=== PATIENT | male | born 1965 | race Caucasian/White ===

== ENCOUNTER 2020-07-16 12:39 | Emergency (ER) | payer OTHER ==
[~2020-07-16] VITALS: Ht 182.9 cm; Wt 75.8 kg
[2020-07-16] MEDS ORDERED: LIPITOR 20 MG T20 M1 PO (12:48)
[2020-07-16] MEDS ORDERED: ASA81BEC PO (12:48)
[2020-07-16] MEDS ORDERED: VITAMIN D21250 MC1 PO (12:48)
[2020-07-16 13:17] LABS: ABSOLUTE EOSINOPHILS 0.1 thou/uL (0.0-0.7); ABSOLUTE MONOCYTES 0.4 thou/uL (0.0-1.2); ABSOLUTE NEUTROPHILS 3.6 thou/uL (1.6-8.1); BASOPHILS 0.5 %; EOSINOPHILS 1.4 %; HEMATOCRIT 45.8 % (42.0-52.0); HEMOGLOBIN 16.2 gm/dL (14.0-18.0); LYMPHOCYTES 20.5 %; MCH 30.7 pg (26.0-34.0); MCHC 35.3 g/dL (28.0-37.0); MCV 87.2 fL (80.0-100.0); MONOCYTES 7.2 %; MPV 7.9 fl. (7.2-11.1); NUCLEATED RBCS 0 /100WBC; PLATELET COUNT* 176 thou/uL (150-400); POLYS 70.4 %; RBC 5.25 mil/uL (4.50-6.00); RDW-CV 13.6 % (10.5-14.5); WBC 5.1 thou/uL (4.0-11.0)
[2020-07-16 13:22] LABS: CALCIUM 8.2 mg/dL (8.5-10.1); CREATININE 1.2 mg/dL (0.6-1.3); POTASSIUM 3.9 mmol/L (3.5-5.1)
[2020-07-16 13:25] LABS: ALBUMIN 3.9 g/dL (3.4-5.0); APTT 27.3 Seconds (25.0-31.3); PROTIME 10.5 Seconds (9.20-11.50); TOTAL BILIRUBIN 0.6 mg/dL (<0.1-1.0); TOTAL PROTEIN 7.2 g/dL (6.4-8.2)
[2020-07-16 16:09] VITALS: BP 120/76
--- NOTE | 2020-07-17 09:32 | EKG ---
[place] [address] ELECTROCARDIOGRAM REPORT Name: MITZI HUNTLEY Room: [facility]#: [id number] Admission: 07/16/20 Attend Phys: Discharge: 07/16/20 Date of : 67 Date of Service: 07/16/20 1252 Report #: [id number] THIS REPORT FOR: //name// [facility] ED Test Date: 2020-07-16 Test Time: 12:52:34 Pat Name: MITZI HUNTLEY Department: Room: Gender: [employer] Layer: : 1965 Requested By: Flaquita Mendez Order Number: [id number] MD: Mario Palacios Measurements Intervals [place] Rate: 76 P: 82 [place]: 183 QRS: 61 QRSD: 99 T: 33 QT: 402 QTc: 453 Interpretive Statements Sinus rhythm Baseline wander in lead(s) II,III,aVL,aVF No previous ECG available for comparison Electronically Signed On 07-17-2020 9:32:20 CDT by Mario Palacios [email or web address] <ELECTRONICALLY SIGNED> By: Mario Palacios MD, LOCATED WITHIN [facility] 07/17/20 0932 1252 1252 Mario Palacios MD, LOCATED [facility]IN [facility] /EPI
== END 2020-07-16 16:09 | disposition home or self-care (01) ==
LOC: M.ERS 12:39
PROVIDERS: Personal Emergency Response Attendant
DX: R07.89 Other chest pain (principal); E78.00 Pure hypercholesterolemia, unspecified

== ENCOUNTER 2020-07-26 20:41 | Emergency (ER) | payer OTHER ==
[~2020-07-26] VITALS: Ht 177.8 cm; Wt 75.8 kg
[~2020-07-26 20:41] MED LIST: ASA81BEC PO; LIPITOR 20 MG T20 M1 PO; VITAMIN D21250 MC1 PO
[2020-07-26] MEDS ORDERED: VIAGRA (20:47)
[2020-07-26 20:55] LABS: ABSOLUTE EOSINOPHILS 0.1 thou/uL (0.0-0.7); ABSOLUTE LYMPHOCYTES 1.4 thou/uL (0.8-5.3); ABSOLUTE MONOCYTES 0.5 thou/uL (0.0-1.2); ABSOLUTE NEUTROPHILS 3.8 thou/uL (1.6-8.1); BASOPHILS 0.6 %; EOSINOPHILS 1.9 %; HEMATOCRIT 41.9 % (42.0-52.0); HEMOGLOBIN 14.9 gm/dL (14.0-18.0); MCH 30.8 pg (26.0-34.0); MCHC 35.5 g/dL (28.0-37.0); MCV 86.8 fL (80.0-100.0); MONOCYTES 8.3 %; MPV 7.7 fl. (7.2-11.1); NUCLEATED RBCS 0 /100WBC; PLATELET COUNT* 162 thou/uL (150-400); POLYS 65.2 %; RBC 4.83 mil/uL (4.50-6.00); RDW-CV 13.3 % (10.5-14.5); WBC 5.8 thou/uL (4.0-11.0)
[2020-07-26 21:05] LABS: CALCIUM 8.1 mg/dL (8.5-10.1); CREATININE 1.3 mg/dL (0.6-1.3); POTASSIUM 3.6 mmol/L (3.5-5.1)
[2020-07-26 21:08] LABS: PROTIME 10.4 Seconds (9.20-11.50)
[2020-07-26 21:16] LABS: ALBUMIN 3.7 g/dL (3.4-5.0); MAGNESIUM 2.2 mg/dL (1.8-2.4); TOTAL BILIRUBIN 0.5 mg/dL (<0.1-1.0); TOTAL PROTEIN 6.7 g/dL (6.4-8.2)
[2020-07-26 21:43] LABS: URINE BILIRUBIN NEGATIVE (Negative); URINE BLOOD NEGATIVE (Negative); URINE CLARITY CLEAR; URINE COLOR YELLOW; URINE GLUCOSE-RANDOM NEGATIVE (Negative); URINE KETONES NEGATIVE (Negative); URINE LEUKOCYTES-REFLEX NEGATIVE (Negative); URINE NITRITE-REFLEX NEGATIVE (Negative); URINE PROTEIN NEGATIVE (Negative); URINE SPECIFIC GRAVITY 1.015 (1.005-1.030); URINE UROBILINOGEN 0.2 E.U./dl (0.2-1.0)
[2020-07-26 23:15] VITALS: BP 134/89
--- NOTE | 2020-07-27 17:42 | EKG ---
[place] [address] ELECTROCARDIOGRAM REPORT Name: MANPREET HUNTLEY Room: [facility]#: [id number] Admission: 07/26/20 Attend Phys: Discharge: 07/26/20 Date of : 67 Date of Service: 07/26/202044 Report #: [id number] THIS REPORT FOR: //name// [facility] ED Test Date: 2020-07-26 Test Time: 20:45:40 Pat Name: MANPREET HUNTLEY Department: Room: Gender: Founder / [place]: [place] : 1965 Requested By: Frannie Valentino Order Number: [id number] MD: Manpreet Arora Measurements Intervals [place] Rate: 88 P: 75 [place]: 184 QRS: 51 QRSD: 101 T: 20 QT: 361 QTc: 437 Interpretive Statements Sinus rhythm Baseline wander in lead(s) II,aVR,aVF,V2 Compared to ECG 07/16/2020 12:52:34 No significant changes Electronically Signed On 07-27-2020 17:42:39 CDT by Manpreet Arora [email or web address] <ELECTRONICALLY SIGNED> By: Manpreet Arora MD, FACC 07/27/20 1742 44 Manpreet Arora MD, [facility] /EPI
== END 2020-07-26 23:15 | disposition home or self-care (01) ==
LOC: M.ERS 20:41
PROVIDERS: Emergency Medicine
DX: R00.2 Palpitations (principal); E78.00 Pure hypercholesterolemia, unspecified